=== PATIENT | male | born 1970 | race Caucasian/White ===

== ENCOUNTER → 2018-09-21 15:19 | Outpatient (CLI) | payer MEDICAID ==
[2018-09-21 15:54] LABS: BASOPHILS 0.2 % (0-2); EOSINOPHILS 1.7 % (0-7); HEMATOCRIT 44.3 % (42.0-54.0); HEMOGLOBIN 15.2 g/dL (13.5-17.5); IMMATURE GRANULOCYTES 0.1 % (0-5); LYMPHOCYTES 20.4 % (15-50); MCH 32.3 pg (26.0-34.0); MCHC 34.3 g/dL (31.0-37.0); MCV 94.3 fL (80.0-100.0); MEAN PLATELET VOLUME 9.1 fL (7.4-10.4); MONOCYTES 8.4 % (2-11); NEUTROPHILS 69.2 % (40-80); PLATELET COUNT 268 10x3/uL (130-400); RDW 13.1 % (11.5-14.5); WBC 9.4 10x3/uL (4.8-10.8)
[2018-09-21 17:01] LABS: ERYTHROCYTE SEDIMENTATION RATE 17 mm/hr (0-20)
== END | disposition home or self-care (01) ==
LOC: D.LABREF 15:19
PROVIDERS: Nurse Practitioner Family
DX: M79.672 Pain in left foot (principal)

== ENCOUNTER 2020-04-18 20:03 | Emergency (ER) | payer MEDICAID ==
[~2020-04-18] VITALS: Ht 188 cm; Wt 79.1 kg
[2020-04-18 20:07] VITALS: Ht 188 cm; Wt 79.1 kg
[2020-04-18 22:59] VITALS: BP 119/81
== END 2020-04-18 23:00 | disposition home or self-care (01) ==
LOC: D.ER 20:03
DX: F41.9 Anxiety disorder, unspecified (principal); R00.2 Palpitations; R07.9 Chest pain, unspecified; M79.602 Pain in left arm; R20.0 Anesthesia of skin

== ENCOUNTER → 2020-05-06 13:25 | Outpatient (CLI) | payer MEDICAID ==
[2020-04-18 20:07] VITALS: BMI 22.4
== END | disposition home or self-care (01) ==
LOC: D.RAD 13:25
PROVIDERS: ATTEND Emergency Medicine
DX: M79.672 Pain in left foot (principal)